=== PATIENT | female | born 1985 | race Caucasian/White ===

== ENCOUNTER 2024-03-17 09:22 | Emergency (ER) | payer OTHER, SELFPAY ==
[2024-03-17 09:24] VITALS: BP 159/89
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
[2024-03-17] MEDS: ATARAX 25 MG PO (10:11)
== END 2024-03-17 11:11 | disposition home or self-care (01) ==
LOC: EMR 09:22
PROVIDERS: EMERGENCY PHYSICIAN Emergency Medicine
DX: F43.11 Post-traumatic stress disorder, acute (principal)
CPT/HCPCS: 99283; 73080